=== PATIENT | female | born 1995 | race American Indian/Alaskan Native ===

== ENCOUNTER 2018-08-05 22:25 | Emergency (ER) | payer OTHER ==
[2018-08-05] MEDS ORDERED: TYLENOL ONE (22:34)
[2018-08-05] MEDS ORDERED: TYLENOL PO ONE (22:38)
--- NOTE | 2018-08-06 00:39 | XRay Report ---
PROCEDURE: XR CHEST ROUTINE 2V TECHNIQUE: PA and lateral chest radiographs were obtained. HISTORY: cough COMPARISONS: None. FINDINGS: Heart: Normal. Mediastinum/Vessels: Normal. Lungs/Pleural space: Normal. Bony thorax: No acute osseous abnormality. IMPRESSION: Normal examination. This document is electronically signed by Reji Howard MD., August 06 2018 12:37:54 AM ET
[2018-08-06 02:01] VITALS: BP 114/68
--- NOTE | 2018-08-06 02:26 | Emergency Department Report ---
Minor Respiratory - HPI Chief Complaint: Upper Respiratory Infection Stated Complaint: CHEST PAIN, HEADACHE, SWEATS, & COUGH Time Seen by Provider: 08/06/18 02:03 Duration: 3 Days Minor Respiratory: Yes Ear Pain, Yes Chest Pain, Yes Fever, No Rhinorrhea, No Sore Throat, No Able to Tolerate Fluids, No Sick Contacts, No Shortness of Breath Other History: 23-year-old -[place] female presents to the emergency room for cough with chest pain headache cold sweats and body aches 3 days. Patient reports that she took ibuprofen and water and has taken nothing for her cough. Patient reports that she vomited last time 2129 yesterday. Patient denies any runny nose denies any sneezing. ED Review of Systems ROS: Stated complaint: CHEST PAIN, HEADACHE, SWEATS, & COUGH Other details as noted in HPI Comment: All other systems reviewed and negative Constitutional: chills, fever Respiratory: cough Cardiovascular: chest pain (with cough) Gastrointestinal: vomiting Musculoskeletal: back pain Neurological: headache ED Past Medical Hx - Past Medical History Previous Medical History?: No - Surgical History Past Surgical History?: No - Social History Smoking Status: Never Smoker Substance Use Type: None - Medications Home Medications: Home Medications Medication Instructions Recorded Confirmed Last Taken Type Benzonatate [Tessalon Perle] 100 mg PO Q8H PRN #15 capsule 08/06/18 Unknown Rx Ibuprofen [Motrin 600 MG tab] 600 mg PO Q8H PRN #21 tablet 08/06/18 Unknown Rx Oseltamivir [Tamiflu] 75 mg PO BID #10 cap 08/06/18 Unknown Rx Minor Respiratory Exam - Exam General: Vital signs noted. No distress. Alert and acting appropriately. HEENT: Yes Moist Mucous Membranes, No Pharyngeal Erythema, No Pharyngeal Exudates, No Rhinorrhea, No Conjuctival Injection, No Frontal Tenderness, No Maxillary Tenderness Ear: Neither TM Bulge, Neither TM Erythema, Neither EAC Pain, Neither EAC Discharge Neck: Yes Supple, No Adenopathy Lungs: Yes Good Air Exchange, No Wheezes, No Ronchi, No Stridor, No Cough, No Labored Respirations, No Retractions, No Use of Accessory Muscles, No Other Abnormal Lung Sounds Heart: No Regular (tachycardia), No Murmur Abdomen: Yes Normal Bowel Sounds, No Tenderness, No Peritoneal Signs Skin: No Rash, No Edema Neurologic: Alert and oriented, no deficits. Musculoskeletal: Unremarkable. ED Course Vital Signs 08/05/18 08/05/18 08/06/18 22:30 23:40 02:00 Temperature 101 F H 99.1 F Pulse Rate 120 H 95 H Respiratory 18 16 16 Rate Blood Pressure 126/72 Blood Pressure 114/68 [Right] O2 Sat by Pulse 99 100 Oximetry ED Medical Decision Making - Radiology Data Radiology results: report reviewed Patient: AZAR GARCIA MR#: [id number] : 1995 Acct:[id number] Age/Sex: 23 / F ADM Date: 08/05/18 Loc: ED Attending Dr: Ordering Physician: ED MD POP Date of Service: 08/05/18 Procedure(s): XR chest routine 2V Accession Number(s): [id number] cc: ED MD POP Fluoro Time In Minutes: PROCEDURE: XR CHEST ROUTINE 2V TECHNIQUE: PA and lateral chest radiographs were obtained. HISTORY: cough COMPARISONS: None. FINDINGS: Heart: Normal. Mediastinum/Vessels: Normal. Lungs/Pleural space: Normal. Bony thorax: No acute osseous abnormality. IMPRESSION: Normal examination. This document is electronically signed by Reji Waddell MD., August 06 2018 12:37:54 AM ET Transcribed By: CO Dictated By: REJI WADDELL MD Electronically Authenticated By: REJI WADDELL MD Signed Date/Time: 08/06/1838 DD/ 05 TD/TT: 08/05/182305 - Medical Decision Making Patient has been evaluated by this provider in fast track. Patient was given Tylenol in triage. Chest x-ray was ordered shows no acute abnormalities normal examination. urinalysis and urine test pending. Patient be treated for viral syndrome with Tamiflu. Patient is to increase her fluid intake she can take Tylenol or Motrin for pain management complete Tamiflu for anti-influenza. Patient is to follow up primary care provider if symptoms persist or gets worse. Critical care attestation.: If time is entered above; I have spent that time in minutes in the direct care of this critically ill patient, excluding procedure time. ED Disposition Clinical Impression: Viral syndrome Disposition: DC-01 TO HOME OR SELFCARE Is pt being admited?: No Does the pt Need Aspirin: No Condition: Stable Instructions: Viral Syndrome (ED), Influenza (ED) Additional Instructions: Please increase her water intake advance her diet as tolerated. Complete your Tamiflu as prescribed, ibuprofen and Tessalon Perles as needed for cough and pain. Prescriptions: Ibuprofen [Motrin 600 MG tab] 600 mg PO Q8H PRN #21 tablet PRN Reason: Pain Oseltamivir [Tamiflu] 75 mg PO BID #10 cap Benzonatate [Tessalon Perle] 100 mg PO Q8H PRN #15 capsule PRN Reason: Cough Referrals: OLEKSANDR WAGNER MD [Primary Care Provider] - 3-5 Days Forms: Work/School Release Form(ED)
[2018-08-06 02:36] LABS: HCG Qualitative,Urine Negative (Negative)
[2018-08-06 02:44] LABS: Bacteria,Urine 4+ /HPF (Negative); Bilirubin,Urine NEG (Negative); Blood,Urine SM (Negative); Color,Urine Yellow (Yellow); Mucus,Urine 1+ /HPF; Protein,Urine <15 mg/dL mg/dL (Negative); Urobilinogen,Urine < 2.0 mg/dL (<2.0)
== END 2018-08-06 03:20 | disposition home or self-care (01) ==
LOC: ED 22:25
DX: B34.9 Viral infection, unspecified (principal)
CPT/HCPCS: 71046; 81001; 81025